=== PATIENT | male | born 1965 | race Hispanic/Latino ===

== ENCOUNTER 2025-06-30 08:17 | Outpatient (CLI) | payer OTHER | END 2025-06-30 08:18 | disposition home or self-care (01) | LOC: SCSULT 08:17 | PROVIDERS: ATTEND Family Medicine | DX: Z48.815 Encounter for surgical aftercare following surgery on the digestive system (principal); Z90.49 Acquired absence of other specified parts of digestive tract | CPT/HCPCS: 76705 ==